=== PATIENT | male | born 1985 | race Caucasian/White ===

== ENCOUNTER 2016-09-10 04:11 | Emergency (ER) | payer SELFPAY ==
[2016-09-10] MEDS ORDERED: OXYCODONE/APAP 5/325MG COMBO TABLET PO ONE (04:44)
--- NOTE | 2016-09-10 04:44 | PDOC ---
History of Present Illness - General Chief Complaint: Pain, Acute Stated Complaint: LEFT KNEE PAIN Time Seen by Provider: 09/10/16 04:38 History Source: Patient Exam Limitations: No Limitations - History of Present Illness Initial Comments: 09/10/16 06:40 31-year-old male presents to the emergency department complaining of 8/10 sharp constant nonradiating right knee pain which started yesterday. Patient states after standing up from a bending position, he heard a pop and felt acute pain. Pain is exacerbated on weight-bear.There are no alleviating factors. Patient denies extremity numbness or tingling sensation, chest pain, shortness of breath , extremity numbness or tingling sensation. Occurred: reports: just prior to arrival Lower Ext. Injury Location - Specific Injury Location Hips: right hip: no evidence of injury, normal inspection, normal range of motion Legs: right: normal inspection, non-tender, normal range of motion Knees: right swelling, right pain Ankle: right no evidence of injury, right normal inspection, right normal range of motion Past History - Past Medical History Allergies/Adverse Reactions: Allergies Allergy/AdvReac Type Severity Reaction Status Date / Time No Known Allergies Allergy Verified 09/10/16 04:48 Home Medications: Ambulatory Orders NK [No Known Home Medication] 11/01/14 - Immunization History Immunization Up to Date: Yes - Psycho/Social/Smoking Cessation Hx Anxiety: No Suicidal Ideation: No Smoking Status: Yes Smoking History: Never smoked Have you smoked in the past 12 months: Yes Number of Cigarettes Smoked Daily: 0 Hx Alcohol Use: No Drug/Substance Use Hx: No Substance Use Type: None Review of Systems - Review of Systems Able to Perform ROS?: Yes Comments:: 09/10/16 06:42 CONSTITUTIONAL: Absent: fever, chills, diaphoresis, generalized weakness, malaise, loss of appetite HEENT: Absent: rhinorrhea, nasal congestion, throat pain, throat swelling, difficulty swallowing, mouth swelling, ear pain, eye pain, visual Changes CARDIOVASCULAR: Absent: chest pain, loss of consciousness, palpitations, irregular heart rate, peripheral edema RESPIRATORY: Absent: cough, shortness of breath, dyspnea with exertion, orthopnea, wheezing, stridor, hemoptysis GASTROINTESTINAL: Absent: abdominal pain, abdominal distension, nausea, vomiting, diarrhea, constipation, melena, hematochezia GENITOURINARY: Absent: dysuria, frequency, urgency, hesitancy, hematuria, flank pain, genital pain MUSCULOSKELETAL: Right knee pain SKIN: Absent: rash, itching, pallor HEMATOLOGIC/IMMUNOLOGIC: Absent: easy bleeding, easy bruising, lymphadenopathy, frequent infections ENDOCRINE: Absent: unexplained weight gain, unexplained weight loss, heat intolerance, cold intolerance Is the patient limited Korean proficient: No *Physical Exam - Physical Exam Comments: 09/10/16 06:42 GENERAL: Well developed, well nourished. Awake and alert. No acute distress. HEENT: Normocephalic, atraumatic. PERRLA, EOMI. No conjunctival pallor. Sclera are non- icteric. Moist mucous membranes. Oropharynx is clear. NECK: Supple. Full ROM. No JVD. Carotid pulses 2+ and symmetric, without bruits. No thyromegaly. No lymphadenopathy. CARDIOVASCULAR: Regular rate and rhythm. No murmurs, rubs, or gallops. Distal pulses are 2+ and symmetric. PULMONARY: No evidence of respiratory distress. Lungs clear to auscultation bilaterally. No wheezing, rales or rhonchi. ABDOMINAL: Soft. Non-tender. Non-distended. No rebound or guarding. No organomegaly. Normoactive bowel sounds. MUSCULOSKELETAL Normal range of motion at all joints excluding right knee. No bony deformities or tenderness. No CVA tenderness. EXTREMITIES: No cyanosis. No clubbing. No edema. No calf tenderness. SKIN: Warm and dry. Normal capillary refill. No rashes. No jaundice. NEUROLOGICAL: Alert, awake, appropriate. Cranial nerves 2-12 intact. No deficits to light touch and temperature in face, upper extremities and lower extremities. No motor deficits in the in face, upper extremities and lower extremities. Normoreflexic in the upper and lower extremities. Normal speech. Toes are down- going bilaterally. Gait is normal without ataxia. PSYCHIATRIC: Cooperative. Good eye contact. Appropriate mood and affect. Right knee decrased R.O.M. +swelling +pain on palp +effusion Unable to flex w/o pain Right ankle F.R>O.M. neg pain on palp 2+ dp pulse right hip F.R.O.M. neg pain on palp ED Treatment Course - RADIOLOGY Radiograph Interpretation: 09/10/16 06:43 2v right knee: neg fx/dislocation 09/10/16 06:45 CT knee w/o contrast: The bones and joints are normal. No joint effusion. There is prepatellar soft tissue edema. Soft tissue edema without fracture. *DC/Admit/Observation/Transfer Diagnosis at time of Disposition: Injury of right knee Qualifiers: Encounter type: initial encounter Qualified Code(s): S89.91XA - Unspecified injury of right lower leg, initial encounter - Discharge Dispostion Disposition: HOME Condition at time of disposition: Stable Admit: No - Referrals Referrals: Lul Clement MD [Staff Physician] - - Patient Instructions Additional Instructions: Rest Iced 20 mins on alternating with 20 mins off Motrin alternating with Tylenol as needed for mild pain Prescription pain medication for severe pain Return to the ER for severe/persistent/worsening symptoms NO weight bear Use crutches
[2016-09-10] MEDS ORDERED: OXYCODONE/APAP 5/325MG COMBO TABLET ONE (04:50)
[2016-09-10 06:38] VITALS: BP 139/87; PULSE 75; TEMP 97.5; BMI 29.8
== END 2016-09-10 07:09 | disposition home or self-care (01) ==
LOC: JER 04:11
DX: S89.91XA Unspecified injury of right lower leg, initial encounter (principal); X58.XXXA Exposure to other specified factors, initial encounter; Y93.89 Activity, other specified; Y92.9 Unspecified place or not applicable
CPT/HCPCS: 73560-TC-RT; 73700-TC-RT; 99282-25

== ENCOUNTER 2018-03-18 12:01 | Emergency (ER) | payer OTHER ==
[2018-03-18 12:23] VITALS: BP 151/90; PULSE 82; BMI 26.6
[2018-03-18] MEDS ORDERED: DIPHTH,PERTUSS(ACELL),TET 0.5 ML DISP.SYRIN IM ONE (12:43)
[2018-03-18] MEDS ORDERED: LIDOCAINE HCL 1%, 10 MG/ML (50 mL VIAL) SQ ONE (12:47)
[2018-03-18] MEDS ORDERED: LIDOCAINE HCL 1%, 10 MG/ML (20ML VIAL) ONE (12:50)
--- NOTE | 2018-03-18 13:27 | PDOC ---
History of Present Illness - General Chief Complaint: Laceration Stated Complaint: LACERATION Time Seen by Provider: 03/18/18 12:39 - History of Present Illness Initial Comments: 03/18/18 13:21 33-year-old male without comorbidities presents for laceration of the left hand. States he cut his hand on the edge of the broken piece of glass. He is not current on tetanus. Past History - Past Medical History Allergies/Adverse Reactions: Allergies Allergy/AdvReac Type Severity Reaction Status Date / Time No Known Allergies Allergy Verified 03/18/18 12:22 Home Medications: Ambulatory Orders Cephalexin [Keflex] 500 mg PO QID #20 capsule 03/18/18 Ibuprofen [Motrin -] 600 mg PO TID #30 tablet 03/18/18 COPD: No - Immunization History Immunization Up to Date: Yes - Suicide/Smoking/Psychosocial Hx Smoking Status: Yes Smoking History: Never smoked Have you smoked in the past 12 months: Yes Number of Cigarettes Smoked Daily: 0 Hx Alcohol Use: No Drug/Substance Use Hx: No Substance Use Type: None Review of Systems - Review of Systems Integumentary: Yes: See HPI *Physical Exam - Vital Signs Last Vital Signs Temp Pulse Resp BP Pulse Ox 82 18 151/90 98 03/18/18 12:22 03/18/18 12:22 03/18/18 12:22 03/18/18 12:22 - Physical Exam Comments: Left hand skin color and temperature are normal. There is about a 3 cm laceration on the palmar aspect of the left hand extending from the second MTPJ to the 4th MTPJ. He is able to make a weak fist however sensation the second third and fourth fingers or decreased. The laceration exposes subcutaneous fat there is no visualized tendon. 03/18/18 13:22 ED Treatment Course - Medications Given in the ED: ED Medications Discontinued Medications Generic Name Dose Route Start Last Admin Trade Name Freq PRN Reason Stop Dose Admin Diphtheria/Tetanus/Acell Pertussis 0.5 ml 03/18/18 12:43 03/18/18 12:51 Boostrix - IM 03/18/18 12:44 0.5 ml .ONCE ONE Administration Lidocaine HCl 15 ml 03/18/18 12:47 03/18/18 12:53 Xylocaine 1% SQ 03/18/18 12:48 15 ml ONCE ONE Administration Medical Decision Making - Medical Decision Making 10 mL of 1% lidocaine without epinephrine was used to infiltrate the wound. This was done aseptically. After appropriate anesthesia the wound was explored to it's base a bloodless field without identification of foreign body. Copiously irrigated. 4 horizontal mattress sutures and one simple suture using 4 -0 nylon was used to close the wound. A dry sterile dressing was placed this was tolerated well. Prophylactic antibiotic was given. Patient was working with garbage in a dirty hand and laceration occurred 03/18/18 13:23 03/18/18 13:25 *DC/Admit/Observation/Transfer Diagnosis at time of Disposition: Hand laceration - Discharge Dispostion Disposition: HOME Condition at time of disposition: Stable Decision to Admit order: No - Referrals Referrals: Kevin Colvin MD [Staff Physician] - - Patient Instructions Printed Discharge Instructions: DI for Laceration Repair Additional Instructions: Return to the emergency room should he develop any pain redness swelling or drainage around the area of the wound. The sutures [place] place for 10 days. Must follow-up with hand surgery for further evaluation and treatment. He may have a nerve injury that may need to be repaired. Follow-up with hand surgery in 2-3 days. I've also placed on a prophylactic antibiotic. Please finish the antibiotics. He was taken for 5 days. Also given you a prescription for Motrin which should help with your pain it's one tablet 3 times a day with food. Discontinue the medication bothers her stomach. Do not take any other medications except Tylenol if she needed at 71 Feer pain. No Advil ibuprofen Aleve or Naprosyn. - Post Discharge Activity
== END 2018-03-18 13:53 | disposition home or self-care (01) ==
LOC: JERFT 12:01
PROC: 3E0234Z Introduction of Serum, Toxoid and Vaccine into Muscle, Percutaneous Approach (ICD-10-PCS; principal; 2018-03-18)
PROC: 0JQK0ZZ Repair Left Hand Subcutaneous Tissue and Fascia, Open Approach (ICD-10-PCS; 2018-03-18)
DX: S61.412A Laceration without foreign body of left hand, initial encounter (principal); W25.XXXA Contact with sharp glass, initial encounter; Y93.89 Activity, other specified; Y92.89 Other specified places as the place of occurrence of the external cause; Y99.8 Other external cause status
CPT/HCPCS: 12002-25; 90471; 90715; 99282-25

== ENCOUNTER 2020-04-14 19:29 | Emergency (ER) | payer OTHER ==
[2020-04-14 19:51] VITALS: BMI 29.9
[2020-04-14] MEDS ORDERED: ACETAMINOPHEN 1000 MG/100 ML VIAL (NON FORMULARY) IVPB ONE (20:34)
[2020-04-14] MEDS ORDERED: morphine CARPU-JECT 4 MG/1 ML DISP.SYRIN IVPUSH ONE (20:34)
[2020-04-14] MEDS ORDERED: SODIUM CHLORIDE 0.9% 500 ML INFUS.BAG IV ONE (20:35)
[2020-04-14] MEDS ORDERED: morphine SULFATE 4 MG/ML VIAL ONE (20:54)
[2020-04-14] MEDS ORDERED: ACETAMINOPHEN INJECTION 100 ML IVPB ONE (20:55)
[2020-04-14 21:11] LABS: BASO % 0.5 % (0-2.0); EOS % 0.1 % (0-4.5); HEMATOCRIT 40.8 % (35.4-49); HEMOGLOBIN 14.5 GM/dL (11.7-16.9); LYMPH % 25.8 % (8-40); MCH 31.6 pg (25.7-33.7); MCHC 35.5 g/dl (32.0-35.9); MEAN CELL VOLUME 89.1 fl (80-96); MEAN PLT VOLUME 9.3 fl (7.5-11.1); MONO % 7.6 % (3.8-10.2); PLATELET COUNT 147 K/MM3 (134-434); RBC 4.58 M/mm3 (4.00-5.60)
[2020-04-14 21:22] LABS: INR 1.08 (0.83-1.09)
[2020-04-14 21:31] LABS: CHLORIDE 103 mmol/L (98-107); POTASSIUM 4.4 mmol/L (3.5-5.1); SODIUM 137 mmol/L (136-145)
[2020-04-14 21:33] LABS: ALBUMIN 3.7 g/dl (3.4-5.0); ANION GAP 7 MMOL/L (8-16); BLOOD UREA NITROGEN 8.6 mg/dL (7-18); CALCIUM 8.3 mg/dL (8.5-10.1); CO2 27 mmol/L (21-32); GLUCOSE,RANDOM 97 mg/dL (74-106)
[2020-04-14 21:34] LABS: LIPASE 257 U/L (73-393)
[2020-04-14 21:36] LABS: CREATININE 1.1 mg/dL (0.55-1.3); SGOT/AST 80 U/L (15-37); SGPT/ALT 112 U/L (13-61)
[2020-04-14 21:38] LABS: BILIRUBIN,TOTAL 0.7 mg/dL (0.2-1); TOT PROT 7.8 g/dl (6.4-8.2)
[2020-04-14 21:39] LABS: ALK PHOS 145 U/L (45-117)
[2020-04-14 21:44] LABS: URINE APPEARANCE CLEAR; URINE BILIRUBIN NEGATIVE (NEGATIVE); URINE COLOR YELLOW; URINE GLUCOSE (UA) NEGATIVE (NEGATIVE); URINE KETONE NEGATIVE (NEGATIVE); URINE LEUK ESTERASE NEGATIVE (NEGATIVE); URINE NITRITE NEGATIVE (NEGATIVE); URINE PROTEIN TRACE (NEGATIVE)
[2020-04-14 21:47] VITALS: TEMP 99.6
[2020-04-15 01:10] VITALS: BP 144/94; PULSE 80
== END 2020-04-15 01:05 | disposition home or self-care (01) ==
LOC: JER 19:29
PROC: 3E0333Z Introduction of Anti-inflammatory into Peripheral Vein, Percutaneous Approach (ICD-10-PCS; principal; 2020-04-14)
PROC: 3E033NZ Introduction of Analgesics, Hypnotics, Sedatives into Peripheral Vein, Percutaneous Approach (ICD-10-PCS; 2020-04-14)
DX: R10.84 Generalized abdominal pain (principal)
CPT/HCPCS: 36415; 71046-TC-FY; 74177-TC; 80053; 81003; 83605; 83690; 84484; 85025; 85610; 86850; 86900; 86901; 87086; 93005; 93010; 99285-25; J0131; Q9967

== ENCOUNTER 2022-04-11 17:25 | Emergency (ER) | payer OTHER ==
[2022-04-11 17:50] VITALS: PULSE 93; RESP 18; TEMP 98.2; BMI 29.3
[2022-04-11] MEDS ORDERED: KETOROLAC TROMETHAMINE 15 MG/ML VIAL IVPUSH ONE (18:42)
[2022-04-11 19:06] LABS: URINE APPEARANCE CLEAR; URINE BILIRUBIN NEGATIVE (NEGATIVE); URINE COLOR YELLOW; URINE GLUCOSE (UA) NEGATIVE (NEGATIVE); URINE KETONE NEGATIVE (NEGATIVE); URINE LEUK ESTERASE NEGATIVE (NEGATIVE); URINE NITRITE NEGATIVE (NEGATIVE); URINE PROTEIN NEGATIVE (NEGATIVE); URINE UROBILINOGEN 0.2 mg/dL (0.2-1.0)
[2022-04-11] MEDS ORDERED: KETOROLAC TROMETHAMINE 15 MG/ML VIAL ONE (19:06)
[2022-04-11] MEDS ORDERED: SODIUM CHLORIDE 0.9% 500 ML INFUS.BAG IV ONE (19:19)
[2022-04-11] MEDS ORDERED: ACETAMINOPHEN 1000 MG/100 ML BAG IVPB ONE (19:20)
[2022-04-11] MEDS ORDERED: ACETAMINOPHEN INJECTION 100 ML IVPB ONE (19:22)
[2022-04-11 19:31] LABS: BASO % 0.4 % (0-2.0); HEMOGLOBIN 17.1 GM/dL (11.7-16.9); LYMPH % 19.4 % (8-40); MCH 30.3 pg (25.7-33.7); MCHC 34.2 g/dl (32.0-35.9); MEAN CELL VOLUME 88.6 fl (80-96); MEAN PLT VOLUME 9.2 fl (7.5-11.1); MONO % 5.2 % (3.8-10.2); PLATELET COUNT 279 10^3/uL (134-434); RBC 5.64 M/mm3 (4.00-5.60); RDW 13.2 % (11.9-15.9); WHITE BLOOD COUNT 13.7 K/mm3 (4.0-10.0)
[2022-04-11 19:57] LABS: CALCIUM 9.6 mg/dL (8.5-10.1)
[2022-04-11 20:01] LABS: CREATININE 0.9 mg/dL (0.55-1.3)
[2022-04-11 20:02] LABS: BILIRUBIN,TOTAL 0.6 mg/dL (0.2-1); TOT PROT 8.2 g/dl (6.4-8.2)
[2022-04-11] MEDS ORDERED: CIPROFLOXACIN 400 MG/D5W 400 MG/200 ML IVPB IVPB ONE (21:40)
[2022-04-11 21:41] VITALS: BP 140/92
[2022-04-11] MEDS ORDERED: CIPROFLOXACIN 500 MG TABLET (RESTRICTED TO ID) PO ONE (21:47)
[2022-04-11] MEDS ORDERED: metroNIDAZOLE 500 MG TABLET PO ONE (21:47)
[2022-04-11] MEDS ORDERED: metroNIDAZOLE 250 MG TABLET ONE (21:56)
== END 2022-04-11 22:24 | disposition home or self-care (01) ==
LOC: JER 17:25
PROC: 3E033GC Introduction of Other Therapeutic Substance into Peripheral Vein, Percutaneous Approach (ICD-10-PCS; principal; 2022-04-11)
DX: K57.32 Diverticulitis of large intestine without perforation or abscess without bleeding (principal)
CPT/HCPCS: 0241U-QW; 36415; 74177-TC; 76870-TC; 80053; 81003; 83690; 85025; 87086; 99285-25; Q9967

== ENCOUNTER 2024-02-19 18:23 | Emergency (ER) | payer OTHER ==
[2024-02-19 18:32] VITALS: BP 137/89; PULSE 71; RESP 20; TEMP 98.2; BMI 29.9
[2024-02-19] MEDS ORDERED: MAG HYDROX/AL HYDROX/SIMETH 30 ML UNIT-DOSE CUP ONE (19:27)
[2024-02-19] MEDS ORDERED: SUCRALFATE 1 GM TABLET (FP) ONE (19:27)
[2024-02-19] MEDS ORDERED: FAMOTIDINE 20 MG TABLET ONE (19:27)
[2024-02-19] MEDS: MAG HYDROX/AL HYDROX/SIMETH 30 ML UNIT-DOSE CUP PO ONE (19:58)
[2024-02-19] MEDS: SUCRALFATE 1 GM TABLET (FP) PO ONE (19:58)
[2024-02-19] MEDS: FAMOTIDINE 20 MG TABLET PO ONE (19:58)
[2024-02-19 20:01] LABS: BASO % 0.6 % (0-2.0); EOS % 3.2 % (0-4.5); HEMATOCRIT 42.2 % (35.4-49); HEMOGLOBIN 14.7 GM/dL (11.7-16.9); LYMPH % 33.1 % (8-40); MCH 30.1 pg (25.7-33.7); MCHC 34.8 g/dl (32.0-35.9); MEAN CELL VOLUME 86.6 fl (80-96); MEAN PLT VOLUME 8.3 fl (7.5-11.1); MONO % 5.4 % (3.8-10.2); NEUT % 57.7 % (42.8-82.8); PLATELET COUNT 260 10^3/uL (134-434); RBC 4.87 M/mm3 (4.00-5.60); RDW 13.2 % (11.9-15.9); WHITE BLOOD COUNT 9.5 K/mm3 (4.0-10.0)
[2024-02-19 20:33] LABS: POTASSIUM 4.2 mmol/L (3.5-5.1)
[2024-02-19 20:35] LABS: CALCIUM 9.3 mg/dL (8.5-10.1)
[2024-02-19 20:36] LABS: ALBUMIN 3.7 g/dl (3.4-5.0); BLOOD UREA NITROGEN 11.7 mg/dL (7-18)
[2024-02-19 20:38] LABS: CREATININE 0.8 mg/dL (0.55-1.3)
[2024-02-19 20:40] LABS: BILIRUBIN,TOTAL 0.3 mg/dL (0.2-1); TOT PROT 7.4 g/dl (6.4-8.2)
[2024-02-19 21:22] LABS: HIV INTERPRETATION NEGATIVE (NEGATIVE)
[2024-02-19] MEDS ORDERED: ACETAMINOPHEN INJECTION 100 ML ONE (22:35)
[2024-02-19] MEDS ORDERED: KETOROLAC TROMETHAMINE 30 MG/1 ML VIAL ONE (22:35)
[2024-02-19] MEDS: SODIUM CHLORIDE 0.9% 500 ML INFUS.BAG IV ONE (22:43)
[2024-02-19] MEDS: KETOROLAC TROMETHAMINE 30 MG/1 ML VIAL IVPUSH ONE (22:43)
[2024-02-19] MEDS: ACETAMINOPHEN 1000 MG/100 ML BAG IVPB ONE (22:43)
[2024-02-19 23:51] LABS: URINE APPEARANCE CLEAR; URINE BILIRUBIN NEGATIVE (NEGATIVE); URINE COLOR YELLOW; URINE GLUCOSE (UA) NEGATIVE (NEGATIVE); URINE KETONE NEGATIVE (NEGATIVE)
[2024-02-19 23:52] LABS: PH,URINE 6.5 (5.0-8.0); URINE LEUK ESTERASE NEGATIVE (NEGATIVE); URINE NITRITE NEGATIVE (NEGATIVE); URINE PROTEIN NEGATIVE (NEGATIVE); URINE UROBILINOGEN 0.2 mg/dL (0.2-1.0)
== END 2024-02-20 01:09 | disposition home or self-care (01) ==
LOC: JER 18:23
PROC: 3E033NZ Introduction of Analgesics, Hypnotics, Sedatives into Peripheral Vein, Percutaneous Approach (ICD-10-PCS; principal; 2024-02-19)
PROC: 3E0333Z Introduction of Anti-inflammatory into Peripheral Vein, Percutaneous Approach (ICD-10-PCS; 2024-02-19)
DX: R10.31 Right lower quadrant pain (principal)
CPT/HCPCS: 36415; 74177-TC; 80053; 81003; 83690; 85025; 86803; 87086; 87389; 96374; 96375; 99285-25; J0131; Q9967